=== PATIENT | female | born 1955 | race American Indian/Alaskan Native ===

== ENCOUNTER 2021-04-06 13:38 | Observation (INO) | payer MEDICARE ==
[~2021-04-06] VITALS: Ht 160 cm; Wt 84.1 kg
[2021-04-06 14:13] LABS: BASO # 0.1 K/mm3 (0.0-0.2); BASO % 0.6 % (0.0-2.0); EOS # 0.1 K/mm3 (0.0-0.7); EOS % 1.2 % (0.0-4.0); GRAN # 7.2 K/mm3 (1.4-6.5); HEMATOCRIT 38.9 % (37.0-47.0); HEMOGLOBIN 12.4 g/dl (12.5-16.0); LYMPH # 2.5 K/mm3 (1.2-3.4); LYMPH % 23.9 % (20.0-51.0); MEAN CELL VOLUME 98 fl (80.0-100.0); MEAN CORPUSCULAR HEMOGLOBIN 31 pg (27-31); MEAN CORPUSCULAR HGB CONC 32 g/dl (33.0-37.0); MEAN PLATELET VOLUME 9.6 fl (7.4-10.4); MONO # 0.5 K/mm3 (0.1-0.6); MONO % 5.1 % (1.7-9.3); PLATELET COUNT 409 K/mm3 (130-400); RED BLOOD COUNT 3.99 M/mm3 (4.10-5.30); REDCELL DISTRIBUTION WIDTH-CV 14.2 % (11.5-14.5)
[2021-04-06 14:30] LABS: ALANINE AMINOTRANSFERASE 15 U/L (0-55); ALBUMIN 4.2 gm/dL (3.4-4.8); ALKALINE PHOSPHATASE 76 U/L (40-150); ANION GAP 10 mmol/L (7-16); AST,SGOT 19 U/L (5-34); BILIRUBIN,TOTAL 0.5 mg/dL (0.2-1.2); BLOOD UREA NITROGEN 18 mg/dL (10-20); CALCIUM 10.2 mg/dL (8.4-10.2); CARBON DIOXIDE 18 mmol/L (23-31); CHLORIDE 112 mmol/L (98-107); CREATININE, serum 1.45 mg/dL (0.57-1.11); GLUCOSE 137 mg/dL (70-99); POTASSIUM 4.4 mmol/L (3.5-4.5); SODIUM 140 mmol/L (136-145); TOTAL PROTEIN 7.8 gm/dL (6.2-8.1)
[2021-04-06 14:39] LABS: TROPONIN-I < 0.010 ng/mL (0.00-0.033)
[2021-04-06] MEDS ORDERED: ZOCOR 40MG40 MG PO (17:52)
[2021-04-06] MEDS ORDERED: FLEXERIL 1010 MG/TAB PO (17:53)
[2021-04-06] MEDS ORDERED: BINOSTO (17:56)
[2021-04-06] MEDS ORDERED: PROTONIX 40MG T40 MG PO (17:57)
--- NOTE | 2021-04-06 18:31 | NUR ---
PT ADMITTED TO UNIT AT THIS TIME. ADMISSION INTAKE AND ASSESSMENT COMPLETED. DENIES ANY PAIN OR NEEDS AT THIS TIME. ORIETED TO ROOM. CONTINUING TO MONITOR.
[2021-04-06 20:15] VITALS: BP 138/69; PULSE 88; TEMP 97.8
--- NOTE | 2021-04-06 20:15 | NUR ---
Patient is resting in bed, alert and oriented x 4. Reports she has chest pain. SBR 135, will provide nitro. NS running at 100 ml/hr. Telemetry in place. Assessment completed, medications provided. No further needs at this time. Call light within reach.
[2021-04-06 20:33] VITALS: BP 128/65
[2021-04-06 20:39] VITALS: BP 113/62; PULSE 88
--- NOTE | 2021-04-06 20:44 | NUR ---
3 doses of nitro provided, patient states pain is still 6-10. Reported to angela and indicated to give [place]. Will provide.
[2021-04-07] VITALS (10 sets, daily range): BP systolic 104–161; BP diastolic 53–76; PULSE 78–96; TEMP 97.5–98
--- NOTE | 2021-04-07 05:29 | NUR ---
Pt has had a calm night after the pain medication provided. She states her pain is not as bad. Continue receiving NS fluids. Has been NPO from midnight. Report will be given to day RN.
[2021-04-07 07:02] LABS: ANION GAP 8 mmol/L (7-16); BLOOD UREA NITROGEN 19 mg/dL (10-20); CALCIUM 8.6 mg/dL (8.4-10.2); CARBON DIOXIDE 20 mmol/L (23-31); CHLORIDE 112 mmol/L (98-107); CHOLESTEROL 186 mg/dL (0-199); CHOLESTEROL RISK RATIO 3.5; CREATININE, serum 1.14 mg/dL (0.57-1.11); GLUCOSE 95 mg/dL (70-99); HDL CHOLESTEROL 52 mg/dL (40-60); LDL CHOLESTEROL 111 mg/dL; MAGNESIUM 1.7 mg/dL (1.6-2.6); POTASSIUM 4.2 mmol/L (3.5-4.5); SODIUM 140 mmol/L (136-145); TRIGLYCERIDE 116 mg/dL (0-149)
[2021-04-07 07:14] LABS: TROPONIN-I < 0.010 ng/mL (0.00-0.033)
[2021-04-07] MEDS ORDERED: PROZAC 20MG20 MG PO (08:04)
--- NOTE | 2021-04-07 08:52 | NUR ---
PT OFF UNIT FOR STRESS TEST AT THIS TIME.
--- NOTE | 2021-04-07 09:14 | NUR ---
PT SITTING UP IN BED. MORNING MEDICATIONS GIVEN. SHIFT ASSESSMENT COMPLETED. REPORTING MODERATE CHEST PAIN AT THIS TIME. IV FLUIDS PUT ON HOLD PER NUCLEAR MED REQUEST FOR STRESS TEST. MORNING MEDICATION HELD AT THIS TIME.
--- NOTE | 2021-04-07 14:20 | NUR ---
Medical Art Therapist met with patient to discuss discharge planning. Patient lives in [place] with her , Julio César (ph#[phone]) who is at bedside. Patient sees Dr. Jeronimo for primary care and obtains medications from [facility] with no difficulties. Patient does not use any DME and reports independence with ADLS. Patient does not have Advance Directives and is not interested in completing DPOA-[facility]. Patient plans to return home at time of discharge. Discharge plan: Home
--- NOTE | 2021-04-07 17:03 | NUR ---
DISCHARGE INSTRUCTIONS GIVEN. IV D/C.
== END 2021-04-07 17:03 | disposition home or self-care (01) ==
LOC: COL.ER 13:38 → MEDICAL 16:01
PROVIDERS: Emergency Medicine; ADMIT Internal Medicine
DX: R07.9 Chest pain, unspecified (principal); E78.5 Hyperlipidemia, unspecified; K21.9 Gastro-esophageal reflux disease without esophagitis; F32.A Depression, unspecified; I10 Essential (primary) hypertension; E87.2 Acidosis; M81.0 Age-related osteoporosis without current pathological fracture; Z20.822 Contact with and (suspected) exposure to COVID-19; Z79.899 Other long term (current) drug therapy; Z79.83 Long term (current) use of bisphosphonates
CPT/HCPCS: A9500; G0378; J2785; J7030; J7040